=== PATIENT | female | born 1985 | race Caucasian/White ===

== ENCOUNTER 2019-09-20 12:33 | Emergency (ER) | payer OTHER ==
[~2019-09-20] VITALS: Ht 157.5 cm; Wt 67.0 kg
[~2019-09-20 12:33] MED LIST: IBUP-1222 PO; OXYC-302 PO
--- NOTE | 2019-09-20 12:41 | NUR ---
KLEBER RN: THIS RN PRESENT DURING EKG. PT TOLERATED WITH NO COMPLICATIONS.
--- NOTE | 2019-09-20 12:43 | NUR ---
DENIES HI/SI
--- NOTE | 2019-09-20 13:07 | NUR ---
PT C/O EPIGASTRIC C/P FOR ABOUT A WEEK. TOOK OTC ACID REFLUX MEDS WITH NO RELIEF. DENIES MEDICAL HX. CONNECTED TO MONITORING. CALL LIGHT IN REACH. LAB AT BEDSIDE.
[2019-09-20 13:25] LABS: BASOPHILS # (AUTO) 0.03 x10^3/uL (0-0.1); BASOPHILS % (AUTO) 0 % (0-1); EOSINOPHILS # (AUTO) 0.11 x10^3/uL (0-0.4); EOSINOPHILS % (AUTO) 2 % (1-7); LYMPHOCYTES # (AUTO) 2.12 x10^3/uL (1-3.4); LYMPHOCYTES % (AUTO) 28 % (22-44); MD NO; MEAN CORPUSCULAR HEMOGLOBIN 30.9 pg (27.0-34.8); MEAN CORPUSCULAR HGB CONC 34.3 g/dL (32.4-35.8); MEAN CORPUSCULAR VOLUME 90.2 fL (80-100); MEAN PLATELET VOLUME 7.5 fL (7.4-10.4); MONOCYTES # (AUTO) 0.34 x10^3/uL (0.2-0.8); MONOCYTES % (AUTO) 5 % (2-9); NEUTROPHILS % (AUTO) 65 % (42-75); PLATELET COUNT 332 x10^3/uL (130-400); RED BLOOD COUNT 4.34 x10^6/uL (3.82-5.3); RED CELL DISTRIBUTION WIDTH 11.9 % (9.6-15.2)
[2019-09-20 13:37] LABS: ALBUMIN 3.9 g/dL (3.4-5.0); ANION GAP 7 mmol/L (5-15); CHLORIDE 107 mmol/L (98-107)
[2019-09-20 13:41] LABS: CREATININE 0.98 mg/dL (0.55-1.02); TROPONIN I < 0.015 ng/mL (0.000-0.045)
[2019-09-20 14:12] VITALS: BP 115/72
--- NOTE | 2019-09-20 14:13 | NUR ---
PT RESTING COMFORTABLY ON GURNEY. LYNNE.
--- NOTE | 2019-09-20 14:31 | NUR ---
ALL RESULTS ARE BACK AT THIS TIME. CHART UP FOR RECHECK.
== END 2019-09-20 15:08 | disposition home or self-care (01) ==
LOC: ED 13:52
DX: R07.2 Precordial pain (principal); F41.1 Generalized anxiety disorder
CPT/HCPCS: 36415; 71045; 80048; 82040; 84484; 85025; 85379; 93005; 99285